=== PATIENT | male | born 1995 | race Asian ===

== ENCOUNTER 2020-03-23 17:25 | Emergency (ER) | payer OTHER ==
[~2020-03-23] VITALS: Ht 175.3 cm; Wt 70.3 kg
[2020-03-23] MEDS ORDERED: MOBIC7.5 MG PO (20:32)
[2020-03-23 20:53] VITALS: BP 123/74
== END 2020-03-23 20:54 | disposition home or self-care (01) ==
LOC: ER 17:25
DX: M25.562 Pain in left knee (principal); M25.561 Pain in right knee; X50.1XXA Overexertion from prolonged static or awkward postures, initial encounter; Y93.89 Activity, other specified; Y92.69 Other specified industrial and construction area as the place of occurrence of the external cause; Y99.9 Unspecified external cause status